=== PATIENT | female | born 1980 | race African-American/Black ===

== ENCOUNTER 2024-06-24 16:31 | Emergency (ER) | payer BC ==
[2024-06-24 17:18] LABS: Hematocrit 37.5 % (34.9-44.5); Hemoglobin 12.3 g/dL (12.0-15.5); Mean Corpuscular HGB CONC 32.8 g/dL (32.0-36.0); Mean Corpuscular Hemoglobin 28.5 pg (27.0-33.0); Mean Corpuscular Volume 86.8 fL (81.6-98.3); Platelet Count 103 10x3/uL (150-450); RBC Distribution Width 13.6 % (11.5-14.5); Red Blood Cell (RBC) Count 4.32 10x6/uL (3.90-5.03); White Blood Cell (WBC) Count 4.75 10x3/uL (3.5-10.5)
[2024-06-24 17:29] LABS: ALT (SGPT) Less than 4 U/L (Less than 34); AST (SGOT) 16 U/L (11-34); Albumin 4.2 g/dL (3.1-4.5); Alkaline Phosphatase 72 U/L (40-110); Anion Gap 11 mmol/L (10-20); BUN (Urea Nitrogen) 12 mg/dL (7.0-18.7); Bilirubin, Total 0.7 mg/dL (0.3-1.2); Calc. Creatinine Clearance 0 mL/min (70-130); Calcium 9.3 mg/dL (7.8-10.44); Carbon Dioxide 23 mmol/L (22-29); Chloride 108 mmol/L (98-107); Estimated GFR 66; Globulin 3.5 g/dL (2.4-3.5); Glucose 104 mg/dL (70-105); Lipase 12 U/L (8-78); Potassium 4.1 mmol/L (3.5-5.1); Protein, Total 7.7 g/dL (6.0-8.3); Sodium 138 mmol/L (136-145)
[2024-06-24 17:44] LABS: Eosinophils 2 % (0-10); Large Platelets SLIGHT (None Seen); Lymphocytes 36 % (21-51); MDiff Complete? YES; Monocytes 7 % (0-10); Neutrophil 55 % (42-75); Platelet Adequacy Comment Appears Decreased; RBC Morphology Within Normal Limits
[2024-06-24] MEDS ORDERED: Dicyclomine 20 MG/2 ML VIAL ONE (18:19)
== END 2024-06-24 18:44 | disposition home or self-care (01) ==
LOC: CSHERS 16:31
DX: R19.7 Diarrhea, unspecified (principal); R10.11 Right upper quadrant pain
CPT/HCPCS: 36415; 80053; 83690; 85025; 96372; 99284